=== PATIENT | female | born 1980 | race Caucasian/White ===

== ENCOUNTER 2016-05-08 09:32 | Outpatient (RCR) | payer OTHER ==
[2016-05-04 11:21] LABS: BASOPHILS % (AUTO) 0 % (0-10); EOSINOPHILS # (AUTO) 0.1 10^3/uL (0.0-0.3); EOSINOPHILS % (AUTO) 1 % (0-10); LYMPHOCYTES # (AUTO) 1.7 X 10^3 (1.0-4.0); LYMPHOCYTES % (AUTO) 17 % (12-44); MEAN CORPUSCULAR HEMOGLOBIN 30 PG (25-34); MEAN CORPUSCULAR HGB CONC 35 G/DL (32-36); MEAN CORPUSCULAR VOLUME 85 FL (80-99); MEAN PLATELET VOLUME 11.1 FL (7.4-10.4); MONOCYTES # (AUTO) 0.8 X 10^3 (0.0-1.0); MONOCYTES % (AUTO) 8 % (0-12); NEUTROPHILS # (AUTO) 7.2 X 10^3 (1.8-7.8); NEUTROPHILS % (AUTO) 74 % (42-75); PLATELET COUNT 264 10^3/uL (130-400); RED BLOOD COUNT 4.82 10^6/uL (4.35-5.85); RED CELL DISTRIBUTION WIDTH 12.8 % (10.0-14.5); WHITE BLOOD COUNT 9.8 10^3/uL (4.3-11.0)
[~2016-05-08 09:32] MED LIST: ASP81TEC PO; BIRTH CONTROL PO; CETI10CA PO; HYDR1TAB PO
[2016-06-29] MEDS ORDERED: FEXO180T84 PO (11:57)
[2016-07-02] MEDS ORDERED: OXYC-202 PO (14:41)
== END 2016-08-02 | disposition home or self-care (01) ==
LOC: LAB 09:32
PROVIDERS: ATTEND Obstetrics & Gynecology
DX: K52.9 Noninfective gastroenteritis and colitis, unspecified (principal)
CPT/HCPCS: 36415; 85025; 87045; 87046; 87177; 87324

== ENCOUNTER 2016-06-29 11:44 | Outpatient (CLI) | payer OTHER ==
[~2016-06-29] VITALS: Ht 162.6 cm; Wt 58.3 kg
[2016-06-29] MEDS ORDERED: FEXO180T84 PO (11:57)
[2016-06-29 11:59] VITALS: BP 115/68
[2016-07-02] MEDS ORDERED: OXYC-202 PO (14:41)
== END 2016-06-29 12:43 | disposition home or self-care (01) ==
LOC: PREOP 11:44
PROVIDERS: ATTEND Obstetrics & Gynecology
DX: Z01.818 Encounter for other preprocedural examination (principal); Z11.2 Encounter for screening for other bacterial diseases; R10.2 Pelvic and perineal pain
CPT/HCPCS: 87081

== ENCOUNTER 2016-07-02 13:06 | Day surgery (SDC) | payer OTHER ==
[~2016-07-02] VITALS: Ht 162.6 cm; Wt 58.3 kg
[~2016-07-02 13:06] MED LIST changes: +FEXO180T84 PO
[2016-07-02] MEDS ORDERED: LACTATED RINGERS 1,000 ML IV ONE ×3 (13:17→16:36)
[2016-07-02] MEDS ORDERED: ONDANSETRON 4 MG/2 ML (SDV) Z0FRAN ONE (13:17)
[2016-07-02] MEDS ORDERED: fentaNYL INJECTION 100 MCG/2 ML AMP ONE (13:17)
[2016-07-02] MEDS ORDERED: DEXAMETHASONE PF 10 MG/ML (DECADRON) VIAL ONE (13:17)
[2016-07-02] MEDS ORDERED: ROCURONIUM 50 MG/5 ML (ZEMURON) VIAL IV ONE (13:17)
[2016-07-02] MEDS ORDERED: SEVOFLURANE (ULTANE) 15 ML INHAL SOLN ONE (13:17)
[2016-07-02] MEDS ORDERED: MIDAZOLAM 2 MG/2 ML (VERSED) VIAL ONE (13:17)
[2016-07-02] MEDS ORDERED: proPOfol 200 MG/20 ML (DIPRIVAN) VIAL IV ONE (13:17)
[2016-07-02] MEDS: LACTATED RINGERS 1,000 ML IV PRN ×3 (13:20→16:45)
[2016-07-02] MEDS ORDERED: ceFAZolin 1,000 MG (ANCEF) VIAL ONE (13:22)
[2016-07-02] MEDS ORDERED: NORMAL SALINE (BAXTER MINI) 50 ML IV ONE (13:22)
[2016-07-02] MEDS ORDERED: BUP/EPI 0.25% 1:200,000 (MARCAINE) 30 ML VIAL ONE (13:55)
[2016-07-02 13:58] VITALS: BP 104/76
[2016-07-02] MEDS ORDERED: ceFAZolin 1 GM/NS 50 ML IVPB IV ONE ×2 (14:00)
[2016-07-02] MEDS ORDERED: D5 LR IV SOLUTION 1,000 ML IV SCH (14:39)
--- NOTE | 2016-07-02 14:39 | Progress Note-Pre Operative ---
Pre-Operative Progress Note H&P Reviewed The H&P was reviewed, patient examined and no changes noted. Date H&P Reviewed: Jul 02, 2016 Time H&P Reviewed: 14:39 Pre-Operative Diagnosis: PELVIC MASS / PELVIC PAIN MELANIE WOOD MD Jul 02, 2016 2:39 pm
[2016-07-02] MEDS ORDERED: OXYC-202 PO (14:41)
--- NOTE | 2016-07-02 14:43 | Discharge Instructions ---
Discharge Instructions Discharge Medications New, Converted or Re-Newed RX: RX on Chart Patient Instructions Patient Instructions: DIRECTED Return to The Hospital For: DIRECTED Activity & Diet Discharge Diet: No Restrictions Activity as Tolerated: No Orders-Post D/C & Referrals Follow Up Appt: Call to make follow up appt. for patient in 1 weeks OR SUTURE REMOVAL. Activity: Rest for 24 hours, than as tolerated. Wound Care: May remove Band-Aid tomorrow. Replace as desired. Keep incisions clean and dry. Wash daily with soap and water. Diet: As tolerated-Clear Liquids only if nauseated. Tomorrow, may shower or tub bathe as desired. No driving for 24 hours, no alcoholic beverages for 24 hours, and nothing per vagina (no tampons, douching, or intercourse) for 1 week. Patient to return to the clinic as soon as possible for: Temperature greater than 101F, Severe Pain, Foul discharge from incision or vagina, Excessive Bleeding (more than a period). MELANIE WOOD MD Jul 02, 2016 2:43 pm
[2016-07-02] MEDS ORDERED: oxyCODONE/APAP 10/325MG (PERCOCET 10) TABLET PO PRN (14:45)
[2016-07-02] MEDS ORDERED: PROMETHAZINE INJ 25 MG/ML (PHENERGAN) AMP IM ONE (14:45)
[2016-07-02] MEDS ORDERED: MEPERIDINE (DEMEROL) INJ 100 MG/ML IM ONE (14:45)
[2016-07-02] MEDS ORDERED: ESTROGENS CONJ IV 25 MG/5 ML (PREMARIN) VIAL IVP ONE (14:45)
[2016-07-02] MEDS ORDERED: KETOROLAC 30 MG/ML VIAL IVP ONE (14:45)
[2016-07-02] MEDS ORDERED: ONDANSETRON 4 MG/2 ML (SDV) Z0FRAN IVP PRN ×2 (14:45→15:45)
[2016-07-02] MEDS ORDERED: NEOSTIGMINE (BLOXIVERZ ) 1 MG/1ML 10 ML VIAL ONE (15:23)
[2016-07-02] MEDS ORDERED: GLYCOPYRROLATE 0.2 MG/ML (ROBINUL) 2 ML VIAL ONE (15:23)
[2016-07-02] MEDS ORDERED: MEPERIDINE (DEMEROL) INJ 50 MG/ML IVP PRN (15:45)
[2016-07-02] MEDS ORDERED: HYDROmorphone (DILAUDID) 2 MG/ML VIAL IVP PRN (15:45)
[2016-07-02] MEDS ORDERED: WATER (STERILE) FOR INJECTION 10 ML ONE (15:46)
[2016-07-02] MEDS: morphine INJ 10 MG/ML 1ML (SYR OR VIAL) IVP PRN ×2 (16:08→16:30)
[2016-07-02 17:00] VITALS: BP 109/71
[2016-07-02 17:30] VITALS: BP 89/55
[2016-07-02 18:00] VITALS: BP 102/62
[2016-07-02 20:20] VITALS: BP 102/62
--- NOTE | 2016-07-05 07:44 | OPERATIVE REPORT ---
PROCEDURE PHYSICIAN: MELANIE WOOD DATE OF PROCEDURE: 07/02/2016 DATE OF DICTATION: 07/02/2016 PREOPERATIVE DIAGNOSES: 1. Pelvic cystic mass. 2. Pelvic pain. POSTOPERATIVE DIAGNOSES: 1. Pelvic cystic mass. 2. Pelvic pain. 3. 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 Pathology is pending from the cystic structures that were removed. OPERATIVE PROCEDURE: Removal of pelvic cystic masses and laparoscopic appendectomy. OPERATIVE DESCRIPTION: With the patient in supine position, under satisfactory general anesthesia, she was repositioned in the low dorsal lithotomy position in the [facility] and prepped and draped usual fashion for abdominal and vaginal surgery. The urinary bladder was emptied with straight catheter. A weighted speculum was placed in posterior fornix of the vagina. The cervix was exposed and grasped anteriorly with a single-tooth tenaculum. The uterus was sounded to 9 cm of uterine sound. The cervix was then serially dilated with Singh dilators to accommodate a uterine manipulator, which was placed and the bulb filled 4 mL of air. The tenaculum and speculum were removed. The patient brought in a low dorsal lithotomy position. A 5 mm incision was made in the left upper quadrant and another 5 mm incision in the inferior margin of the umbilicus. A Veress needle was placed through the umbilical incision. Correct placement was confirmed with the water drop test then the abdomen insufflated with 2.4 liters of carbon dioxide. A 5 mm port was placed through the umbilical incision after first attempting to place the 5 mm port in the left upper quadrant. With port the umbilical incision, the laparoscope was introduced and under direct vision, the left upper quadrant port was placed without difficulty. The pelvis was examined. There cystic masses filling the pelvis. It did not seem to be attached to the uterus or to the ovaries. It did not appear to emanate from the bowel. The laparoscope was rotated. The appendix was thickened, firm, nodular, indurated and injected. Laparoscope was rotated further. The upper abdomen examined, there was no abnormal pathology noted there. Laparoscope was brought back to the pelvis. The cystic masses were grasped and elevated and any adhesions were taken free. An Endobag was placed through the umbilical incision and all of these multiple cystic masses were placed in the Endobag. There was more than 8 masses, some of these were multilocular strings of cysts but all of it was placed in the Endobag and brought out through the umbilical incision and sent to pathology essentially intact. The pelvis was now examined. There was no further pathology of any abnormal appearance in the pelvis. The laparoscope was turned to the appendix. The appendix was grasped and elevated. The mesoappendix was perforated close to the base of the appendix with cautery. The mesoappendix was then divided with electrocautery insuring hemostasis along the way. The Endo CIARA was placed across the base of the appendix and fired severing the appendix from its attachment. The appendix was then placed in the second Endobag and brought out through the umbilical port as well. The umbilical port had been replaced with a 12 mm port, placing a 5 mm port in an incision superior to the symphysis pubis. All 3 port sites had been infiltrated with 0.25% Marcaine with epinephrine prior to making incisions. The stump of the appendix now was copiously irrigated and treated was several drops of Betadine solution. The pelvis was irrigated itself. The abdomen, upper abdomen and pelvis were examined again for any abnormal pathology. There were no further of the cystic mass noted anywhere. The procedure at this point was complete and terminated. There was no bleeding at any of the operative sites. The abdomen was evacuated of its insufflating gas after first removing the operative instruments and then the ports under direct vision. No bleeding was noted. The skin incisions were closed. The upper and lower 5 mm incisions were closed with pushpa. The umbilical incision fascia was closed with [id number] suture of 2-0 Vicryl and then the skin was closed with interrupted sutures of 3-0 nylon. The uterine manipulator bulb was drained. The instrument was removed from the vagina. A speculum was replaced in the vagina. The cervix was found to be bleeding from the puncture sites of the tenaculum. These were touched with silver nitrate to affect hemostasis. Now with hemostasis assured, the procedure was complete and terminated. The patient was uneventfully awakened from her general anesthesia and transferred to recovery room in stable condition with plans for discharge home PAR. Sponge and needle counts were correct. Estimated blood loss was less than 10 mL. The patient tolerated the procedure very well. Job ID: [id number] Dictated Date: 07/02/2016 15:33:27 Road Sign Installer Date: 07/05/2016 07:27:13 / [email or web address]
== END 2016-07-02 20:20 | disposition home or self-care (01) ==
LOC: SDC 13:06
PROVIDERS: ATTEND Obstetrics & Gynecology
DX: R10.2 Pelvic and perineal pain (principal); D19.1 Benign neoplasm of mesothelial tissue of peritoneum; K38.0 Hyperplasia of appendix
CPT/HCPCS: 84703

== ENCOUNTER → 2017-06-22 | Outpatient (CLI) | payer OTHER ==
[~2017-06-22] MED LIST changes: +OXYC-202 PO
--- NOTE | 2017-06-22 14:54 | Diagnostic Imaging Report ---
EXAMINATION: Right breast diagnostic mammogram with tomography evaluation. The current study was also evaluated with a Computer Aided Detection (CAD) system. INDICATION: Focal asymmetry in the lower aspect of the right breast and calcifications in the upper outer aspect. FINDINGS: Background dense parenchyma is seen. The focal asymmetry seen on the prior exam is evaluated with additional compression views and tomography and appears less prominent in favor of summation artifact of parenchyma. The calcifications were evaluated with compression magnification views and demonstrate a group of calcifications with mild heterogeneity and predominantly coarse type calcifications in favor of benign etiology. IMPRESSION: 1. The focal asymmetry previously seen in the medial inferior aspect of the right breast is likely summation artifact of the dense underlying parenchyma. 2. The group of calcifications in the upper outer aspect of the right breast are favored to be benign. 3. An ultrasound evaluation is pending. ACR BI-RADS Category 0: Incomplete. (Needs additional imaging evaluation). Result letter will be mailed to the patient. Note: At least 10% of breast cancer is not imaged by mammography. Dictated by: Dictated on workstation # [id number]
--- NOTE | 2017-06-22 20:31 | Diagnostic Imaging Report ---
EXAM: Bilateral breast ultrasound. INDICATION: Calcifications in the right breast and focal asymmetry in the lower aspect of the right breast with background dense parenchyma bilaterally. FINDINGS: The left breast four-quadrant central retroareolar region appears unremarkable. The right breast at the 6 o'clock zone demonstrates a lobulated hypoechoic lesion with smooth margins measuring 1.6 x 0.6 x 1.1 cm. 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 This is 4 cm from the nipple. There is a palpable area with margins at 6 o'clock zone, 6 cm from the nipple measuring 4.8 x 1.3 x 2.4 cm with lobulated margins and internal characteristics similar to the rest of the breast parenchyma, favored to be related to a breast hamartoma (fibroadenolipoma). IMPRESSION: The calcifications of the right breast are likely benign. Lesion seen at 6 o'clock zone 4 cm from the nipple is favored to be a fibroadenoma and lesion more inferior at 6 o'clock zone is probably a breast hamartoma. Six-month followup right breast mammogram and ultrasound is recommended to ensure no adverse development. BI-RADS 3. ACR BI-RADS Category 3: Probably benign findings. Result letter will be mailed to the patient. Note: At least 10% of breast cancer is not imaged by mammography. Dictated by: Dictated on workstation # [id number]
== END ==
LOC: RAD 13:48
PROVIDERS: ATTEND Obstetrics & Gynecology
DX: R92.1 Mammographic calcification found on diagnostic imaging of breast (principal); N64.89 Other specified disorders of breast

== ENCOUNTER → 2019-10-16 | Outpatient (CLI) | payer OTHER ==
[~2019-10-16] MED LIST changes: -OXYC-202 PO; +OXYC1TAB12 PO
--- NOTE | 2019-10-16 11:26 | Diagnostic Imaging Report ---
EXAMINATION: MRI of the brain and IACs without contrast. INDICATION: Right-sided hearing loss Multiplanar images utilizing both T1 and T2-weighted sequences were obtained. Magnified images of the skull base were also obtained in the coronal and axial planes. Intravenous contrast was not performed as the patient is approximately 4-5 months . There are no prior studies available for comparison. 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 This mass measures 3.0 x 2.2 x 2.2 cm in maximum transverse AP and longitudinal dimensions. This mass should be considered neoplastic until proven otherwise. The mass effaces the brainstem to the left slightly. However there does not appear to be any edema of the brainstem and consequently this mass may be slow growing and long-standing in nature. There are also several vascular flow voids within the mass. A preoperative angiogram may provide additional information regarding the vascularity of this mass. The 2 main differential considerations would be either an acoustic neuroma or a meningioma. A metastatic focus would be a remote possibility. There is no other mass lesions identified. There is no abnormal signal arising from brain on the diffusion series to indicate an area of acute ischemia. The ventricles are non-dilated. There is no abnormal signal arising from the brain on the FLAIR series to suggest demyelinating disease. The sella is not enlarged but the pituitary gland does seem somewhat prominent. There is no focal mass involving the pituitary. The infundibulum is slightly deviated to the right. The optic chiasm is undisturbed. The expected carotid flow voids are evident bilaterally. The orbits are symmetrical and within normal limits. There is mild mucosal thickening of the maxillary and ethmoid sinuses. IMPRESSION: 1. 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 This should be considered neoplastic until proven otherwise with an acoustic neuroma or meningioma is the primary concern. 2. No other mass is identified and there is no sign of an acute intracranial abnormality. 3. There is mild bilateral maxillary and ethmoid sinusitis. 3. These results were called to Farida Interiano/CATHLEEN at Dr. Aaron Monique's office. Dictated by: Dictated on workstation # [id number]
== END ==
LOC: RAD 09:45
PROVIDERS: ATTEND Otolaryngology Otolaryngology/Facial Plastic Surgery
DX: G93.9 Disorder of brain, unspecified (principal); H91.91 Unspecified hearing loss, right ear; J32.0 Chronic maxillary sinusitis; J32.2 Chronic ethmoidal sinusitis
CPT/HCPCS: 70551

== ENCOUNTER 2020-03-01 15:36 | Inpatient (IN) | payer OTHER ==
[2020-03-01] VITALS (14 sets, daily range): BP systolic 95–141; BP diastolic 49–85
[~2020-03-01] VITALS: Ht 165.1 cm; Wt 69.7 kg
--- NOTE | 2020-03-01 15:45 | NUR ---
Arrived to unit ambulates self with c/o leaking fluid and abdominal pain. Wt obtained and to room 320. Gowned and urine sample obtained. To bed and oriented to room, call light and surroundings. Plan of care reviewed with pt.
[2020-03-01] MEDS ORDERED: VANCOMYCIN INJECTION 0.1 MG in NS (IVPB) 250 ML IV SCH (16:15)
[2020-03-01] MEDS ORDERED: D5 LR IV SOLUTION 1,000 ML IV SCH (16:17)
[2020-03-01] MEDS ORDERED: LIDOCAINE/EPI 1%-1:200,000 (XYLOCAINE) 30 ML VIAL INJ ONE (16:30)
[2020-03-01 16:39] LABS: BASOPHILS % (AUTO) 0 % (0-10); EOSINOPHILS # (AUTO) 0.1 10^3/uL (0.0-0.3); EOSINOPHILS % (AUTO) 1 % (0-10); HEMATOCRIT 35 % (35-52); HEMOGLOBIN 12.1 G/DL (11.5-16.0); LYMPHOCYTES # (AUTO) 1.9 X 10^3 (1.0-4.0); LYMPHOCYTES % (AUTO) 15 % (12-44); MEAN CORPUSCULAR HEMOGLOBIN 30 PG (25-34); MEAN CORPUSCULAR HGB CONC 35 G/DL (32-36); MEAN CORPUSCULAR VOLUME 86 FL (80-99); MONOCYTES # (AUTO) 0.7 X 10^3 (0.0-1.0); MONOCYTES % (AUTO) 6 % (0-12); NEUTROPHILS # (AUTO) 9.7 X 10^3 (1.8-7.8); NEUTROPHILS % (AUTO) 78 % (42-75); PLATELET COUNT 173 10^3/uL (130-400); WHITE BLOOD COUNT 12.4 10^3/uL (4.3-11.0)
[2020-03-01] MEDS ORDERED: BUTORPHANOL INJ 2 MG/ML (STADOL) VIAL IV ONE ×2 (16:45→18:45)
[2020-03-01] MEDS ORDERED: NS IV SCH (17:00)
[2020-03-01] MEDS ORDERED: VANCOMYCIN IV SCH (17:00)
[2020-03-01] MEDS ORDERED: OXYTOCIN PRE-MIX DRIP 0 ML IV ONE (19:24)
[2020-03-01] MEDS ORDERED: OXYTOCIN PRE-MIX DRIP 500 ML IV ONE (19:35)
[2020-03-01] MEDS ORDERED: OXYTOCIN PRE-MIX DRIP 500 ML IV SCH (19:41)
[2020-03-01] MEDS ORDERED: ONDANSETRON 4 MG/2 ML (SDV) Z0FRAN IVP PRN (19:45)
[2020-03-01] MEDS ORDERED: oxyCODONE/APAP 5/325MG (PERCOCET 5) TABLET PO PRN (19:45)
[2020-03-01] MEDS ORDERED: TETANUS,DIPTH,PERTUSS P/F (BOOSTRIX) 0.5 ML VIAL IM ONE (19:45)
[2020-03-01] MEDS ORDERED: BENZOCAINE/MENTHOL (DERMOPLAST) 60 ML CAN TP PRN (19:45)
[2020-03-01] MEDS ORDERED: MEASLES,MUMPS,RUBELLA 1 EA INJ SC ONE (19:45)
--- NOTE | 2020-03-01 19:50 | History & Physical ---
History and Physical Date Seen by Provider: Mar 01, 2020 Time Seen by Provider: 19:45 this patient is a 39-year-old 1 white female who presented in active labor. She reported rupture membranes as early as 3 p.m. on the day prior to admission. She reports having had clear fluid leaking at about 3 p.m. yesterday that is continued through the afternoon and evening and through the night and this morning she began rosemary and having leaking and decided to come to the hospital in the afternoon. She's had no other obstetric problems. She does have a brain tumor of uncertain etiology with plans for surgical intervention at some point after delivery. Her GBS culture was positive after 35 weeks gestation. Patient is allergic to penicillin and GBS culture also showed Cleocin resistance inducibility and patient was started on vancomycin shortly after admission.patient was noted to have mild oligohydramnios on her previous 2 ultrasound but LENNY had remained over 50 Allergies are to penicillin Medications are vitamins medical social and surgical histories are per the antepartum record HEENT exam is normal Neck is supple no lymphadenopathy no thyromegaly Abdomen is gravid soft nontender nondistended Extremities show no clubbing or cyanosis. There is no Homans sign. Pelvic exam currently shows a cervix 8-9 cm dilated soft and stretchy. Vertex presentation gross rupture membranes and was 1 station. Laboratory Tests 03/01/20 16:25 Assessment and plan term at 39+ weeks gestation with spontaneous rupture membranes now approaching 16 hours. Patient is on vancomycin for GBS prophylaxis. She is tolerating her labor relatively well. She has had 2 doses of Stadol. Anticipation is for a vaginal delivery fairly shortly 39 week with P PROM over 12 hours and early labor on admission Allergies and Home Medications Allergies Coded Allergies: Penicillins (Unverified Allergy, Unknown, A BABY, 06/29/16) codeine (Verified Allergy, Unknown, 07/02/16) Home Medications Aspirin 81 Mg Tabec, 81 MG PO HS, (Reported) Fexofenadine HCl 180 Mg Tablet, 180 MG PO DAILY, (Reported) Oxycodone HCl/Acetaminophen 1 Each Tablet, 1-2 TAB PO Q4H PRN for PAIN Prescribed by: MELANIE GATES on 07/02/16 1441 [ Control] , PO DAILY, (Reported) Patient Home Medication List Home Medication List Reviewed: Yes Clinical Quality Measures DVT/VTE Risk/Contraindication: Risk Factor Score Per Nursin RFS Level Per Nursing on Admit: 1=Low/No VTE PPX MELANIE WOOD MD Mar 01, 2020 19:50
[2020-03-01] MEDS ORDERED: DCS100C PO (19:52)
[2020-03-01] MEDS ORDERED: OXYC1TAB87 PO (19:52)
[2020-03-01] MEDS ORDERED: IBUP-1780 PO (19:52)
--- NOTE | 2020-03-01 19:54 | Discharge Inst-Surgical ---
Discharge Inst-Surgical Depart Medication/Instructions New, Converted or Re-Newed RX: RX on Chart Consults/Follow Up Patient Instructions: as directed Orders & Referrals Follow Up Appt: Call to make follow up appt. for patient in 5 weeks. Activity Per routine post vaginal delivery instructions. Please call in RX to patient pharmacy. Diet as tolerated Patient may shower or tub bathe as desired. Activity Activity as Tolerated: No Diet Discharge Diet: No Restrictions MELANIE WOOD MD Mar 01, 2020 19:54
[2020-03-01] MEDS ORDERED: CATHETER FLUSH 10 ML SYR IV SCH (22:00)
[2020-03-01] MEDS: DOCUSATE SODIUM 100 MG (COLACE) CAP PO SCH (23:00)
[2020-03-01] MEDS: KETOROLAC 30 MG/ML VIAL IVP SCH (23:38)
[2020-03-02] VITALS (10 sets, daily range): BP systolic 88–104; BP diastolic 50–56
--- NOTE | 2020-03-02 01:40 | NUR ---
Patient assisted up to bathroom. Ambulated without difficulty. Positive void noted. No clots, light rubra bleeding.
--- NOTE | 2020-03-02 02:00 | NUR ---
Patient transferred to PP room 309 via wheelchair. Accompanied by staff, infant in crib, and . Patient oriented to room, call light, thermostat, and dietary menu. Fresh ice water provided. PP folder given and explained. No questions or concerns voiced at this time.
--- NOTE | 2020-03-02 04:23 | OPERATIVE REPORT ---
DATE OF SERVICE: 03/01/2020 DELIVERY NOTE The patient delivered by term operative vaginal delivery at 39+ weeks gestation a viable female infant with Apgars of 7 and 8 at 1 and 5 minutes respectively, a weight of 8 pounds and 6 ounces and time of 22:38 and a cord blood pH of 7.25. The was delivered over a midline episiotomy that was performed to shorten the second stage of labor and in anticipation of a shoulder dystocia and because of decreased heart rate. Alatorre forceps were applied at about a +3 to +4 station. Correct placement was confirmed. The bladder had been drained via a red Olsen catheter. The cervix was completely dilated, 100% effaced. The presenting part was a vertex with the straight OA. With the forceps were applied gentle traction was maintained along the pelvic axis to prevent turtling of the head, which is what had been transpiring for quite some time with mom pushing the baby down almost to . With gentle traction the presenting part was not able to retract and the delivery was accomplished with two contractions with mom pushing and with maintaining traction along the pelvic axis to prevent retraction of the presenting part. The head delivered and there was still some degree of turtling. All the fingers were palpable under the baby's chin. Neal was employed as well as suprapubic pressure from the mom's left side to the right side as the baby was facing to the mom's right. With about 15 to 20 degrees of rotation, the hand that was under the chin was easily accessible that hand and arm were delivered and then the delivery was accomplished fairly expeditiously. Less than 1 minute between delivery of the head and delivery of the shoulders. The was bulb suctioned on completion of delivery. The baby was stimulated and dried. There was a pulse of approximately 100 to 110 and the umbilical cord immediately after delivery. The baby was pinking and eventually fairly promptly was shown a spontaneous cry, moved all extremities. The baby had good tone and reflexes. Once the cord was relatively pulseless, it was doubly clamped, the father cut the cord, the baby was passed to mom's abdomen. Eventually, the baby was taken to the warmer for RT and the pediatric nurse to evaluate the baby, which appeared to be doing quite well and was returned to the mom in short order. The placenta delivered fairly promptly spontaneously Cristiane. It was somewhat of an elongated placenta, but was normal, otherwise with a 3-vessel cord. The cervix, vagina, rectum, and perineum were examined and found intact, except for midline episiotomy and an extension of the posterior vaginal wall of a vaginal laceration that was basically concurrent with the episiotomy. The entire complex was repaired with a single suture of 3-0 Vicryl Rapide in the usual manner to good reapproximation and good hemostasis. Sponge and needle counts were correct on completion of the delivery and the repair. Estimated blood loss was around 300 mL. The patient tolerated the delivery and the repair well and remained in the LDR for recovery. The baby remained with the mom. Job ID: [id number] DocumentID: [id number] Dictated Date: 03/01/2020 23:07:51 Brush Fabrication Supervisor Date: 03/02/2020 04:22:38 Dictated By: MELANIE WOOD MD
[2020-03-02] MEDS: KETOROLAC 30 MG/ML VIAL IVP SCH ×3 (05:42→18:11)
--- NOTE | 2020-03-02 08:13 | Progress Note ---
Standard Progress Note Progress Notes/Assess & Plan Date Seen by a Provider: Mar 02, 2020 Time Seen by a Provider: 08:12 Progress/Assessment & Plan this patient is without complaint except for being sore. She is ablating, voiding, tolerating oral intake well and has good pain control. Vital Signs 03/01/20 03/02/20 22:15 05:45 Temp 37.2 Pulse 78 Resp 16 B/P (MAP) 88/55 (66) Pulse Ox 98 O2 Delivery Room Air O2 Flow Rate 10.00 vital signs are stable. Patient is afebrile. Fundus is firm below the umbilicus and nontender. Extremities show no clubbing or cyanosis. There is no Homans sign. Assessment and plan day number 1 doing well status post term operative vaginal delivery at 39 weeks gestation. Plan is for routine convalescence care Final Diagnosis 39 week operative vaginal delivery MELANIE WOOD MD Mar 02, 2020 08:13
[2020-03-02] MEDS: DOCUSATE SODIUM 100 MG (COLACE) CAP PO SCH ×2 (09:07→19:58)
--- NOTE | 2020-03-02 09:50 | NUR ---
Assisted up to void. pericare and pad changed. pt did well with no c/o dizzy/lightheadedness. Back to bed. Addendum: 03/02/20 at 1024 by VITALY PEACOCK RN wrong patient.
--- NOTE | 2020-03-02 20:00 | NUR ---
Pt up ambulating around in room. New gown given. Pt's pad and misplaced and blood was on her gown. Assessment completed.
[2020-03-02] MEDS ORDERED: IBUPROFEN 800 MG (MOTRIN) TAB PO ONE (23:29)
[2020-03-02] MEDS: IBUPROFEN 800 MG (MOTRIN) TAB PO SCH (23:30)
[2020-03-03] VITALS: BP 105/63
[2020-03-03] MEDS ORDERED: IBUPROFEN 800 MG (MOTRIN) TAB PO ONE ×3 (05:39→16:01)
--- NOTE | 2020-03-03 07:43 | NUR ---
called. dismissal orders received.
[2020-03-03 08:45] VITALS: BP 98/54
[2020-03-03] MEDS: IBUPROFEN 800 MG (MOTRIN) TAB PO SCH (08:45)
[2020-03-03] MEDS: DOCUSATE SODIUM 100 MG (COLACE) CAP PO SCH (08:45)
--- NOTE | 2020-03-03 08:45 | NUR ---
initial shift assessment completed, see interventions for further. POC reviewed, states understanding.
--- NOTE | 2020-03-03 09:19 | NUR ---
jarod & faye Rx's called into [facility] per pt's request.
[2020-03-03 16:12] VITALS: BP 109/72
--- NOTE | 2020-03-03 16:30 | NUR ---
dismissal instructions given, verbalizes understanding. reviewed medication administration schedule and dosage. instructed pt to schedule 4 week PP appointment. rooming in parent information given. signature page signed, placed on chart. mother discharge to rooming in status until dismissed from hospital.
[2020-03-06] MEDS ORDERED: IBUPROFEN 800 MG (MOTRIN) TAB PO SCH
== END 2020-03-03 16:30 | disposition home or self-care (01) | DRG 807 ==
LOC: WSo 15:36 → LDRP 15:36 → WSo 16:09 → LDRP 03-02 06:08
PROVIDERS: ADMIT Obstetrics & Gynecology; ATTEND Obstetrics & Gynecology
PROC: 10E0XZZ Delivery of Products of Conception, External Approach (ICD-10-PCS; principal; 2020-03-02)
PROC: 0W8NXZZ Division of Female Perineum, External Approach (ICD-10-PCS; 2020-03-02)
DX: O42.92 Full-term premature rupture of membranes, unspecified as to length of time between rupture and onset of labor (principal); Z37.0 Single live birth; Z3A.39 39 weeks gestation of pregnancy
CPT/HCPCS: 36415; 85025; 86780; 86850; 86900; 86901; 99212

== ENCOUNTER → 2021-04-21 | Outpatient (CLI) | payer OTHER ==
[~2021-04-21] MED LIST changes: +DOCU-239 PO; +GADOBUTROL 15 MMOL/15 ML (GADAVIST) VIAL IV ONE; +IBUP-1780 PO; +OXYC1TAB87 PO
--- NOTE | 2021-04-21 10:23 | Diagnostic Imaging Report ---
Exam: MRV of the brain performed without contrast. Multiple MIP images were created. [employer] 3D system was used for 3D reconstruction and reformation of the images to provide better evaluation of anatomy. Comparison: 10/16/2019. Findings: Postsurgical changes of mass resection are visualized from the right CPA. There is a relatively diminutive flow void in the right internal jugular vein relative to the left. No flow void is seen in the sigmoid and transverse sinuses on the right. The left sigmoid and transverse sinuses are unremarkable without filling defects. The confluence of sinuses, superior sagittal sinus, and straight sinus have a normal appearance. Impression: 1. Absence right sigmoid and transverse sinuses, likely related to postsurgical changes of mass resection from the right CPA. No associated ischemia is seen on the MRI brain performed the same date. 2. No evidence of acute filling defect in the dural venous sinuses. Dictated by: Dictated on workstation # [id number]
--- NOTE | 2021-04-21 10:26 | Diagnostic Imaging Report ---
PROCEDURE: MR imaging of the brain with and without contrast. TECHNIQUE: Multiplanar, multisequence MR imaging of the brain was performed with and without contrast. INDICATION: Followup. Prior meningioma status post surgical resection. COMPARISON: 10/16/2019. Findings: Postsurgical changes of right occipital craniotomy and mass resection from the right CPA are visualized. There has been resolution of previous mass effect on the brainstem and right cerebellum. No abnormal T2 hyperintense signal is seen in the brainstem and posterior fossa. There is distortion of the cisternal segments of the right 7th and 8th cranial nerves secondary to postsurgical scarring. No residual enhancing soft tissue component is seen. No new abnormal enhancement is visualized. No acute ischemia, intraparenchymal mass, or hemorrhage. No hydrocephalus. The ventricles, cortical sulci, and basilar cisterns are symmetric and unremarkable. The sellar and suprasellar regions have a normal appearance. The paranasal sinuses and mastoid air cells demonstrate normal signal characteristics. The globes and orbits are symmetric and unremarkable. Impression: 1. Postsurgical changes of right occipital craniotomy and mass resection from the right CPA. There has been resolution of previous mass effect seen on the brainstem and right cerebellum. No residual enhancing component is seen. No parenchymal edema. 2. No acute ischemia, intraparenchymal mass, or hemorrhage. No midline shift. Dictated by: Dictated on workstation # [id number]
== END ==
LOC: RAD 09:30
PROVIDERS: ATTEND Otolaryngology Otolaryngology/Facial Plastic Surgery
DX: Z86.011 Personal history of benign neoplasm of the brain (principal); Z98.890 Other specified postprocedural states
CPT/HCPCS: 70544; 70553

== ENCOUNTER → 2021-05-06 | Outpatient (CLI) | payer OTHER ==
[~2021-05-06] MED LIST changes: -GADOBUTROL 15 MMOL/15 ML (GADAVIST) VIAL IV ONE
--- NOTE | 2021-05-06 14:50 | Diagnostic Imaging Report ---
Indication: Routine screening. Comparison is made with prior mammogram 05/04/2017. 2-D and 3-D bilateral screening mammography was performed with CAD. Both breasts are heterogeneously dense, limiting the sensitivity of mammography. A benign calcifications in the right breast appears stable. The nodular densities previously described in the inferior right breast also appears stable. No new mass or malignant-appearing microcalcifications are seen. Axillae are unremarkable. IMPRESSION: BI-RADS Category 2 No mammographic features suspicious for malignancy are identified. ACR BI-RADS Category 2: Benign findings. Result letter will be mailed to the patient. Note: At least 10% of breast cancer is not imaged by mammography. Dictated by: Dictated on workstation # [id number]
== END ==
LOC: RAD 09:59
PROVIDERS: ATTEND Obstetrics & Gynecology
DX: Z12.31 Encounter for screening mammogram for malignant neoplasm of breast (principal)
CPT/HCPCS: 77063; 77067

== ENCOUNTER → 2021-12-24 | Outpatient (CLI) | payer OTHER ==
[2021-12-24 15:07] LABS: ALBUMIN 4.5 GM/DL (3.2-4.5); BILIRUBIN,DIRECT 0.3 MG/DL (0.0-0.3); BILIRUBIN,INDIRECT 0.4 MG/DL; BILIRUBIN,TOTAL 0.7 MG/DL (0.1-1.0)
== END ==
LOC: LAB 14:32
PROVIDERS: ATTEND Podiatrist Foot & Ankle Surgery
DX: B35.1 Tinea unguium (principal)
CPT/HCPCS: 36415; 80076

== ENCOUNTER → 2022-02-24 | Outpatient (CLI) | payer OTHER ==
[2022-02-24 14:22] LABS: ALBUMIN 4.1 GM/DL (3.2-4.5)
[2022-02-24 14:25] LABS: TOTAL PROTEIN 6.6 GM/DL (6.4-8.2)
[2022-02-24 14:26] LABS: BILIRUBIN,TOTAL 0.3 MG/DL (0.1-1.0)
[2022-02-24 14:30] LABS: BILIRUBIN,DIRECT 0.2 MG/DL (0.0-0.3); BILIRUBIN,INDIRECT 0.1 MG/DL
== END ==
LOC: LAB 13:09
PROVIDERS: ATTEND Podiatrist Foot & Ankle Surgery
DX: B35.1 Tinea unguium (principal)
CPT/HCPCS: 36415; 80076